=== PATIENT | female | born 1955 | race Caucasian/White ===

== ENCOUNTER 2022-05-17 18:35 | Inpatient (IN) | payer MEDICARE, OTHER ==
[~2022-05-17] VITALS: Ht 170.2 cm; Wt 45.8 kg
--- NOTE | 2022-05-17 19:44 | NUR ---
BIBS. NAUSEA X 3 DAYS. ALSO NOTED BEEN COUGHING X 3 DAYS. PT A/OX4. TOLERATING R/A WELL WITH NO RESP DISTRESS. SAFETY MEASURES IN PLACE.
--- NOTE | 2022-05-17 19:55 | NUR ---
EMT AT PT'S BEDSIDE FOR EKG
--- NOTE | 2022-05-17 19:56 | NUR ---
COVID ANTIGEN SWAB COLLECTED AND SENT TO LAB
--- NOTE | 2022-05-17 20:00 | NUR ---
PROVIDED PT WITH URINE CUP; PT NOT ABLE TO URINATE AT THIS TIME. WILL F/U
--- NOTE | 2022-05-17 20:03 | NUR ---
FINANCIAL REPORTING CONSULTANT AT PT'S BEDSIDE
[2022-05-17] MEDS ORDERED: ONDANSETRON HCL/PF 4 MG/2 ML VIAL ONE (20:21)
[2022-05-17 20:30] LABS: BASOPHILS % (AUTO) 0.1 % (0.0-2.0); EOSINOPHILS % (AUTO) 0.1 % (0.0-6.0); HEMATOCRIT 35 % (33-45); LYMPHOCYTES # (AUTO) 0.4 K/uL (0.8-4.8); LYMPHOCYTES % (AUTO) 5.2 % (20.0-44.0); MEAN CORPUSCULAR HGB CONC 34 g/dl (31.0-36.0); MEAN CORPUSCULAR VOLUME 85 fL (82-100); MONOCYTES # (AUTO) 0.4 K/uL (0.1-1.30); NEUTROPHILS % (AUTO) 89.6 % (43.0-81.0); PLATELET COUNT (AUTO) 208 K/uL (150-450); RED BLOOD CELL COUNT(AUTO) 4.14 MIL/uL (4.0-5.2); WHITE BLOOD COUNT (AUTO) 7.8 K/uL (4.3-11.0)
[2022-05-17] MEDS ORDERED: IV NS 0.9% 1,000 ML IV ONE (20:30)
[2022-05-17] MEDS ORDERED: ONDANSETRON HCL/PF - ER 4 MG/2 ML VIAL IV ONE (20:30)
[2022-05-17 20:33] LABS: CALCIUM, SERUM 8.2 mg/dL (8.5-10.1); CREATININE 0.6 mg/dL (0.6-1.3); POTASSIUM 3.5 mmol/L (3.5-5.1)
[2022-05-17 20:39] LABS: ALBUMIN 2.5 g/dL (3.4-5.0); BILIRUBIN,DIRECT 0.5 mg/dL (0.0-0.2); TOTAL PROTEIN, SERUM 6.6 g/dL (6.4-8.2)
--- NOTE | 2022-05-17 20:42 | NUR ---
COVID POSITIVE. DR. ELISSA SAENZ AWARE.
--- NOTE | 2022-05-17 20:59 | NUR ---
IV LFA #18G S/L PATENT AND INTACT
--- NOTE | 2022-05-17 22:18 | NUR ---
REPORT GIVEN TO EMILY BACA RN FOR NADIA
--- NOTE | 2022-05-17 22:38 | NUR ---
PT TRANSFERRING TO [facility] VIA ACLS PROTOCOL. VSS. ALL BELONGINGS WITH PT.
--- NOTE | 2022-05-17 22:40 | NUR ---
RN ADMITTING NOTE RECEIVED PATIENT FROM ER VIA SANDRA ACCOMPANIED BY 2 ER STAFF, PATIENT AO X 4, IN NO ACUTE DISTRESS, TRANSFERRED TO BED VIA 2 PERSON ASSIST, PATIENT IS AMBULATORY AT BASELINE BUT STATES SHE'S FEELING WEAK TODAY, BREATHING EVEN AND UNLABORED, SATURATION AT 95% ON ROOM AIR, SR ON THE MONITOR, HR IS 100. IV LINE AT LFA 18G PATENT AND FLUSHING WELL, SALINE LOCKED. PATIENT IS CONTINENT AND ABLE TO USE BEDPAN, HOWEVER STATES SHE IS UNABLE TO URINATE AND PROVIDE URINE SAMPLE AT THIS TIME, WILL TRY AGAIN LATER. COMPREHENSIVE ASSESSMENT DONE, NO SKIN ISSUES NOTED. SAFETY MEASURES IN PLACE, BED IS LOCKED AND AT LOWEST POSITION, HOB ELEVATED, CALL LIGHT WITHIN REACH OF PATIENT. WILL CONTINUE TO MONITOR AND CARRY OUT MD ORDERS.
[2022-05-17 23:02] VITALS: BP 127/60
[2022-05-17] MEDS ORDERED: CEFTRIAXONE 1 G VIAL ONE (23:22)
[2022-05-17] MEDS ORDERED: Z GUARD REMEDY 4 OZ OINT TP PRN (23:30)
[2022-05-17] MEDS ORDERED: MAGNESIUM HYDROXIDE 30 ML UDC PO PRN (23:30)
[2022-05-17] MEDS ORDERED: ACETAMINOPHEN 325 MG TABLET PO PRN (23:30)
[2022-05-17] MEDS: ENOXAPARIN SODIUM 40 MG/0.4 ML DISP.SYRIN SQ SCH (23:30)
[2022-05-17] MEDS: CEFTRIAXONE 1 G in IV D5W 50 ML IV SCH ×2 (23:30→23:32)
[2022-05-17] MEDS ORDERED: ONDANSETRON HCL/PF 4 MG/2 ML VIAL IVP PRN (23:30)
[2022-05-17] MEDS: DOXYCYCLINE HYCLATE (100 MG) 100 MG TABLET PO SCH ×2 (23:30→23:32)
--- NOTE | 2022-05-17 23:52 | NUR ---
RN NOTE PATIENT REFUSED MEDICATIONS, PT REFUSED BLOOD DRAW WELL, STATES SHE JUST WANTS TO SLEEP TONIGHT. AWARE
--- NOTE | 2022-05-17 23:59 | NUR ---
2359 Critical Procalcitonin 4.34 relayed to MIKAL Akbar with no order made. Informed him patient refused her antibiotics.
--- NOTE | 2022-05-18 04:14 | NUR ---
RN NOTE PT REFUSED VITAL SIGNS TO BE TAKEN.
--- NOTE | 2022-05-18 06:58 | NUR ---
RN OPEN NOTE PATIENT IN BED AO X 4, IN NO ACUTE DISTRESS, BREATHING EVEN AND UNLABORED, SATURATION AT 97% ON ROOM AIR, SR ON THE MONITOR, HR IS 98. IV LINE AT LFA 18G PATENT AND FLUSHING WELL, SALINE LOCKED. COMPREHENSIVE ASSESSMENT DONE, NO SKIN ISSUES NOTED. SAFETY MEASURES IN PLACE, BED IS LOCKED AND AT LOWEST POSITION, HOB ELEVATED, CALL LIGHT WITHIN REACH OF PATIENT. WILL CONTINUE TO MONITOR AND FALLOW POC
[2022-05-18 07:41] LABS: BASOPHILS % (AUTO) 0.1 % (0.0-2.0); HEMATOCRIT 35 % (33-45); HEMOGLOBIN 11.5 g/dL (11.5-14.8); LYMPHOCYTES # (AUTO) 0.6 K/uL (0.8-4.8); LYMPHOCYTES % (AUTO) 8.9 % (20.0-44.0); MEAN CORPUSCULAR HGB CONC 33 g/dl (31.0-36.0); MEAN CORPUSCULAR VOLUME 86 fL (82-100); MONOCYTES # (AUTO) 0.4 K/uL (0.1-1.30); MONOCYTES % (AUTO) 5.5 % (2.0-12.0); NEUTROPHILS # (AUTO) 5.6 K/uL (1.8-8.9); NEUTROPHILS % (AUTO) 85.5 % (43.0-81.0); PLATELET COUNT (AUTO) 202 K/uL (150-450); RED BLOOD CELL COUNT(AUTO) 4.03 MIL/uL (4.0-5.2); WHITE BLOOD COUNT (AUTO) 6.5 K/uL (4.3-11.0)
--- NOTE | 2022-05-18 07:43 | NUR ---
RAYA OPEN NOTE PATIENT IN BED AO X 4, BREATHING EVEN AND UNLABORED, SATURATION AT 97% ON ROOM AIR, SR ON THE MONITOR, HR IS 94, IV LINE AT LFA 18G PATENT AND INTACT, SALINE LOCKED. DENIES PAIN OR DISCOMFORT. SAFETY MEASURES IN PLACE, BED IS LOCKED AND AT LOWEST POSITION, HOB ELEVATED, CALL LIGHT WITHIN REACH OF PATIENT. NEEDS ATTENDED, WILL CONTINUE TO MONITOR AND FALLOW POC Addendum: 05/18/22 at 0809 by BARTOLO LARES RN DISREGARD THIS NOTE
[2022-05-18 08:00] VITALS: BP 111/62
[2022-05-18 08:01] LABS: CALCIUM, SERUM 8.1 mg/dL (8.5-10.1); CREATININE 0.5 mg/dL (0.6-1.3); MAGNESIUM 2.1 mg/dL (1.8-2.4); PHOSPHORUS 2.3 mg/dL (2.5-4.9); POTASSIUM 3.6 mmol/L (3.5-5.1)
[2022-05-18] MEDS: DOXYCYCLINE HYCLATE (100 MG) 100 MG TABLET PO SCH ×2 (08:04→20:22)
[2022-05-18] MEDS: PANTOPRAZOLE 40 MG TABLET.DR PO SCH (08:04)
--- NOTE | 2022-05-18 08:09 | NUR ---
[facility] AM MEDS BUT DECLINED TO TAKE IT, WILL OFFER LATER AGAIN.
--- NOTE | 2022-05-18 08:56 | NUR ---
offerred Am meds again but declined to take it despite explanation and encouragement.
[2022-05-18] MEDS ORDERED: NEUTRA PHOS 1 POWD.PACKET PO ONE (09:30)
[2022-05-18] MEDS ORDERED: NEUTRA PHOS 1 POWD.PACKET NG ONE (09:30)
[2022-05-18 09:31] LABS: BILIRUBIN,URINE 1+ (NEGATIVE); COLOR,URINE DARK YELLOW (YELLOW); LEUKOCYTE ESTERASE ,URINE NEGATIVE (NEGATIVE); NITRITE, URINE NEGATIVE (NEGATIVE); PROTEIN,URINE 2+ mg/dl (NEGATIVE); UGLUCOSE NEGATIVE (NEGATIVE)
[2022-05-18 09:33] LABS: BACTERIA,URINE Moderate /HPF (None Seen); SQUAMOUS EPITHELIAL CELL,UR Few /HPF (None Seen); WBC,URINE 21-50 /HPF (0-3)
--- NOTE | 2022-05-18 10:02 | NUR ---
resident still declined to take am meds, despite explanation and encouragement,
--- NOTE | 2022-05-18 10:22 | NUR ---
seen by Andrea SAENZ, aware that pt refusing AM meds, spoke to pt. agreed to take, neutraphos prepared but once the MD left, pt refused to take it despite explanation and encouragement. meds returned
[2022-05-18] MEDS ORDERED: DIVA500T4 PO (11:18)
[2022-05-18] MEDS ORDERED: TRAZ-182 PO (11:18)
[2022-05-18] MEDS ORDERED: ALPR0.255 PO (11:18)
[2022-05-18] MEDS ORDERED: ALBU8.5H8 IH (11:18)
[2022-05-18] MEDS ORDERED: GABA-536 PO (11:18)
[2022-05-18] MEDS ORDERED: POLY17PO4 PO (11:18)
[2022-05-18] MEDS ORDERED: ESCI10TA PO (11:18)
[2022-05-18] MEDS ORDERED: ACET-868 PO (11:18)
[2022-05-18] MEDS ORDERED: TAMS-12 PO (11:18)
[2022-05-18] MEDS ORDERED: QUET400T PO (11:18)
[2022-05-18] MEDS ORDERED: DIVA250T PO (11:18)
[2022-05-18] MEDS ORDERED: CHOL100043 PO (11:18)
[2022-05-18] MEDS ORDERED: TRAM50TA2 PO (11:18)
[2022-05-18] MEDS ORDERED: BUDE10.22 IH (11:18)
[2022-05-18] MEDS ORDERED: LATA2.5D15 EACHEYE (11:18)
[2022-05-18] MEDS ORDERED: THIA100T74 PO (11:18)
[2022-05-18 12:00] VITALS: BP 129/64
[2022-05-18 14:00] VITALS: BP 125/71
[2022-05-18 16:00] VITALS: BP 125/71
--- NOTE | 2022-05-18 18:38 | NUR ---
RN CLOSING NOTE PATIENT IN BED AO X 4, BREATHING EVEN AND UNLABORED, SATURATION AT 94% ON ROOM AIR, SR ON THE MONITOR, HR IS 94, IV LINE AT LFA 18G PATENT AND INTACT, SALINE LOCKED. DENIES PAIN OR DISCOMFORT. MINIMIZE WATER INTAKE. SAFETY MEASURES IN PLACE, BED IS LOCKED AND AT LOWEST POSITION, HOB ELEVATED, CALL LIGHT WITHIN REACH OF PATIENT. NEEDS ATTENDED, WILL CONTINUE TO MONITOR AND FOLLOW POC
--- NOTE | 2022-05-18 19:30 | NUR ---
RN Opening Notes Received pt in bed, awake, flat affect. AOx4, able to make needs known. On RA and tolerating well. No SOB noted. No s/sx of respiratory distress noted. Tele monitor detects SR. IV access in LFA #18G. IV is intact, patent, and flushing well. Safety precautions in place: bed in lowest, locked postion, siderails upX2, and brakes on. Table and call light within reach. All needs met at this time.
[2022-05-18 20:00] VITALS: BP 115/56
[2022-05-18] MEDS: CEFTRIAXONE 1 G in IV D5W 50 ML IV SCH (20:22)
[2022-05-18] MEDS: ENOXAPARIN SODIUM 40 MG/0.4 ML DISP.SYRIN SQ SCH (20:23)
--- NOTE | 2022-05-18 20:23 | NUR ---
RN Notes Patient refused 2100 medications. Educated patient on risks and benefits but still refused.
[2022-05-19] VITALS: BP 112/61
--- NOTE | 2022-05-19 03:49 | NUR ---
RN Notes Per LANDSCAPE FOREMAN, tried to bathe patient because she had voided but patient refused.
[2022-05-19 04:00] VITALS: BP 111/58
--- NOTE | 2022-05-19 06:49 | NUR ---
RN Closing Notes Pt in bed, asleep, awakens to verbal stimuli. AOx4, able to make needs known. On RA and tolerating well. No SOB noted. No s/sx of respiratory distress noted. Tele monitor detects SR. IV access in LFA #18G. IV is intact, patent, and flushing well. All orders carried out. All needs met. Pt kept clean and dry. Safety precautions in place: bed in lowest, locked postion, siderails upX2, and brakes on. Table and call light within reach. Will endorse to oncoming shift for NADIA.
--- NOTE | 2022-05-19 07:05 | NUR ---
RN OPENING NOTE PATIENT IN BED ASLEEP, BREATHING EVEN AND UNLABORED, SATURATION AT 94% ON 2L VIA NC. SR ON EXTERNAL CIVIL DEFENSE DIRECTOR, IV LINE AT LFA 18G PATENT AND INTACT, SALINE LOCKED. SAFETY MEASURES IN PLACE, BED IS LOCKED AND AT LOWEST POSITION, HOB ELEVATED, CALL LIGHT WITHIN REACH.
[2022-05-19] MEDS: PANTOPRAZOLE 40 MG TABLET.DR PO SCH (07:58)
[2022-05-19 08:00] VITALS: BP 107/54
[2022-05-19] MEDS: DOXYCYCLINE HYCLATE (100 MG) 100 MG TABLET PO SCH ×2 (08:47→21:00)
--- NOTE | 2022-05-19 10:36 | NUR ---
RN OPENING NOTE PATIENT IN BED ASLEEP, BREATHING EVEN AND UNLABORED, SATURATION AT 94% ON 2L VIA NC. SR ON EXTERNAL CREDIT PRODUCT ANALYST, IV LINE AT LFA 18G PATENT AND INTACT, SALINE LOCKED. SAFETY MEASURES IN PLACE, BED IS LOCKED AND AT LOWEST POSITION, HOB ELEVATED, CALL LIGHT WITHIN REACH.
[2022-05-19] MEDS: ENSURE ENLIVE 237 ML LIQUID (VANILLA) PO SCH ×2 (11:49→17:06)
[2022-05-19 12:00] VITALS: BP 108/58
--- NOTE | 2022-05-19 16:05 | NUR ---
PATIENT REFUSED VITAL SIGNS TO BE CHECKED Addendum: 05/19/22 at 1607 by RILEY BOYCE RN Amended: Links added.
--- NOTE | 2022-05-19 19:00 | NUR ---
RN CLOSING NOTE PATIENT IN BED, AWAKE, BREATHING EVEN AND UNLABORED, O2 2L VIA NC. SR ON EXTERNAL RESEARCH DAIRY FARM SUPERVISOR, IV LINE AT LFA 18G PATENT AND INTACT, SALINE LOCKED. SAFETY MEASURES IN PLACE, BED IS LOCKED AND AT LOWEST POSITION, CALL LIGHT WITHIN REACH.
--- NOTE | 2022-05-19 19:15 | NUR ---
RN OPENING NOTE RECEIVED PATIENT IN BED, AWAKE, AAO X4, O2 VIA NC AT 3L. ON TELE MONITOR SR, IV ACCESS AT LFA 18G INTACT AND PATENT S/L. SAFETY MEASURES IN PLACE: BED LOCKED AND IN LOWEST POSITION, CALL LIGHT WITHIN REACH, SIDE RAILS UP X3.
[2022-05-19] MEDS: ENOXAPARIN SODIUM 40 MG/0.4 ML DISP.SYRIN SQ SCH (21:00)
[2022-05-19] MEDS: CEFTRIAXONE 1 G in IV D5W 50 ML IV SCH (21:00)
--- NOTE | 2022-05-19 21:30 | NUR ---
RN NOTE PATIENT REFUSED ALL MEDICATIONS AND VITAL SIGNS FOR TONIGHT. MD MADE AWARE.
--- NOTE | 2022-05-20 07:30 | NUR ---
RN CLOSING NOTE PATIENT IN BED, ASLEEP BUT EASY TO AROUSE, AAO X4, O2 VIA NC AT 3L. ON TELE MONITOR SR, IV ACCESS AT LFA 18G INTACT AND PATENT S/L. SAFETY MEASURES MAINTAINED: BED LOCKED AND IN LOWEST POSITION, CALL LIGHT WITHIN REACH, SIDE RAILS UP X3.
[2022-05-20 08:00] VITALS: BP 97/34
[2022-05-20 08:04] LABS: CALCIUM, SERUM 7.8 mg/dL (8.5-10.1); CREATININE 0.5 mg/dL (0.6-1.3)
[2022-05-20] MEDS: ENSURE ENLIVE 237 ML LIQUID (VANILLA) PO SCH ×3 (08:04→17:00)
[2022-05-20] MEDS: PANTOPRAZOLE 40 MG TABLET.DR PO SCH ×2 (08:04→08:33)
--- NOTE | 2022-05-20 08:39 | NUR ---
RN NOTE PATIENT REFUSED 0730 DOSE OF PANTOPRAZOLE AND ENSURE LIQUID. NOTIFIED ERICH WYATT NP AND CHARGE NURSE SOON. PROCALCITONIN AT 6.75.
[2022-05-20 08:40] LABS: HEMATOCRIT 34 % (33-45); HEMOGLOBIN 11.5 g/dL (11.5-14.8); LYMPHOCYTES # (AUTO) 0.6 K/uL (0.8-4.8); LYMPHOCYTES % (AUTO) 5.7 % (20.0-44.0); MEAN CORPUSCULAR HGB CONC 34 g/dl (31.0-36.0); MEAN CORPUSCULAR VOLUME 86 fL (82-100); MONOCYTES # (AUTO) 0.4 K/uL (0.1-1.30); MONOCYTES % (AUTO) 3.7 % (2.0-12.0); NEUTROPHILS # (AUTO) 9.2 K/uL (1.8-8.9); NEUTROPHILS % (AUTO) 90.6 % (43.0-81.0); PLATELET COUNT (AUTO) 302 K/uL (150-450); RED BLOOD CELL COUNT(AUTO) 3.97 MIL/uL (4.0-5.2); WHITE BLOOD COUNT (AUTO) 10.2 K/uL (4.3-11.0)
[2022-05-20] MEDS: DOXYCYCLINE HYCLATE (100 MG) 100 MG TABLET PO SCH (08:48)
[2022-05-20] MEDS ORDERED: POTASSIUM CHLORIDE 20 MEQ POWDER PACKET PO ONE ×2 (09:00→12:00)
[2022-05-20] MEDS ORDERED: PANTOPRAZOLE 40 MG TABLET.DR PO ONE (10:00)
--- NOTE | 2022-05-20 10:48 | NUR ---
RN NOTE PATIENT REFUSED TO SPEAK TO DR TALBERT. AWARE.
[2022-05-20 12:00] VITALS: BP 97/55
[2022-05-20] MEDS ORDERED: CEFEPIME 2 GM in IV D5W 100 ML IV SCH (15:00)
[2022-05-20] MEDS: AZITHROMYCIN 250 MG TABLET PO SCH (15:39)
[2022-05-20] MEDS: CEFEPIME 2 GM in IV D5W 100 ML IV SCH (15:39)
[2022-05-20 16:00] VITALS: BP 102/56
[2022-05-20] MEDS ORDERED: IV NS 0.9% 250 ML IV PRN (16:00)
--- NOTE | 2022-05-20 16:31 | NUR ---
RN NOTE PATIENT REFUSED MEDICATIONS. EDUCATED PATIENT ABOUT THE RISKS AND BENEFITS. PATIENT STILL REFUSED. NOTIFIED MD.
--- NOTE | 2022-05-20 17:14 | NUR ---
RN NOTE PATIENT REFUSED TO SIGN CONSENT FOR US GUIDED THORACENTESIS OF THE RIGHT LUNG. PATIENT STATED "I'D RATHER LET IT CLEAR ON ITS OWN". NELSON SAENZ CNA WITNESSED REFUSAL AT BEDSIDE. PATIENT ALLOWED BED BATH AT THIS TIME AND COMPLETE LINEN AND GOWN CHANGE. PATIENT INSISTS ON LAYING FLAT WITHOUT PILLOW. PATIENT REFUSED TO DRINK ENSURE WITH DINNER, PATIENT STATED "DON'T EVEN BOTHER BRINGING IT IN".
--- NOTE | 2022-05-20 19:39 | NUR ---
RN CLOSING NOTE PATIENT IN BED, AWAKE, BREATHING EVEN AND UNLABORED, O2 2L VIA NC. ST ON EXTERNAL BOTTLE LABELER, IV LINE AT LFA 18G PATENT AND INTACT, SALINE LOCKED. ALL SAFETY MEASURES IN PLACE, BED IS LOCKED AND AT LOWEST POSITION, CALL LIGHT WITHIN REACH. WILL ENDORSE CONTINUITY OF CARE TO ENROLLMENT ADVISOR.
--- NOTE | 2022-05-20 19:52 | NUR ---
RN OPENING NOTES: RECEIVED PATIENT IN BED, AWAKE, ALERT/ORIENTED X3-4 AND VERBALLY RESPONSIVE. BREATHING EVEN AND UNLABORED, O2 AT 2L/MIN VIA N/C AND PT TOLERATED WELL. IV ACCES ON LFA#18G INTACT AND PATENT. NO S/S OF INFILTRATIONS. DENIES PAIN OR DISCOMFORT. NO ACUTE DISTRESS. PER PREVIOUS SHIFT, PT REFUSED ALL THE MEDS. VERY UNCOOPERATIVE. ALL SAFETY MEASURES IN PLACE. BED IN LOWEST POSITION AND LOCKED. SIDE RAILS UP X2, PLACE CALL LIGHT WITHIN REACH. WILL CONTINUE TO MONITOR
[2022-05-20 20:00] VITALS: BP 100/62
[2022-05-21] VITALS: BP 105/61
[2022-05-21 04:00] VITALS: BP 105/60
[2022-05-21] MEDS: CEFEPIME 2 GM in IV D5W 100 ML IV SCH ×2 (04:00→15:07)
--- NOTE | 2022-05-21 04:26 | NUR ---
RN NOTES: PT STRONGLY REFUSED IV ATB MAXIPIME. SAID," I DON'T TAKE ANY IV MEDICATIONS". ALSO REFUSED TO SIGN CONSENT FOR THORACENTESIS. WILL CONTINUE TO MONITOR
--- NOTE | 2022-05-21 06:49 | NUR ---
RN CLOSING NOTES: PATIENT IN BED, AWAKE, ALERT/ORIENTED X 4 AND VERBALLY RESPONSIVE. BREATHING EVEN AND UNLABORED, O2 AT 2L/MIN VIA N/C AND PT TOLERATED WELL. O2 SAT 98%. IV ACCESS ON LFA#18G INTACT AND PATENT. NO S/S OF INFILTRATIONS. DENIES PAIN OR DISCOMFORT. NO ACUTE DISTRESS. PT REFUSED IV MEDICATION. VERY UNCOOPERATIVE. ALL SAFETY MEASURES IN PLACE. BED IN LOWEST POSITION AND LOCKED. SIDE RAILS UP X2, PLACE CALL LIGHT WITHIN REACH. WILL ENDORSE TO MORNING SHIFT NURSE.
[2022-05-21] MEDS: ENSURE ENLIVE 237 ML LIQUID (VANILLA) PO SCH ×3 (07:49→16:25)
[2022-05-21 08:00] VITALS: BP 105/60
--- NOTE | 2022-05-21 08:00 | NUR ---
RN OPENING NOTES: RECEIVED PATIENT IN BED, SLEEPING, HAVE A SMALL TOWEL COVERING HER EYES, PATIENT IS VERBALLY RESPONSIVE WHEN AWAKEN, PATIENT STATED "CAN YOU PLEASE LEAVE ME ALONE". ALERT/ORIENTED X3-4 BREATHING EVEN AND UNLABORED, O2 AT 2L/MIN VIA N/C AND PT TOLERATED WELL. IV ACCES ON LFA#18G INTACT AND PATENT. NO S/S OF INFILTRATIONS. DENIES PAIN OR DISCOMFORT AT THIS TIME. NO ACUTE DISTRESS. ALL SAFETY MEASURES IN PLACE. BED IN LOWEST POSITION AND LOCKED. SIDE RAILS UP X2, PLACE CALL LIGHT WITHIN REACH. CONTINUE ON COVID ISOLATION PRECAUTION. PLAN OF CARE CONTINUE.
--- NOTE | 2022-05-21 08:10 | NUR ---
PER RN,MG, PT REFUSING TO SIGN THE CONSENT FOR THORACENTESIS. RN WILL INFORM ORDERING MD.
--- NOTE | 2022-05-21 08:45 | NUR ---
SEEN BY ERICH COIL MACHINE OPERATOR AT THE BEDSIDE, PATIENT REFUSED THORACENTESIS.
[2022-05-21] MEDS ORDERED: POTASSIUM CHLORIDE 20 MEQ POWDER PACKET PO ONE ×2 (09:00→12:00)
--- NOTE | 2022-05-21 09:00 | NUR ---
DR. BE INFORMED ABOUT PATIENT REFUSING THORACENTESIS.
[2022-05-21 09:01] LABS: EOSINOPHILS % (AUTO) 0.3 % (0.0-6.0); HEMATOCRIT 34 % (33-45); HEMOGLOBIN 11.4 g/dL (11.5-14.8); LYMPHOCYTES # (AUTO) 0.8 K/uL (0.8-4.8); LYMPHOCYTES % (AUTO) 10.9 % (20.0-44.0); MEAN CORPUSCULAR HGB CONC 34 g/dl (31.0-36.0); MEAN CORPUSCULAR VOLUME 85 fL (82-100); MONOCYTES # (AUTO) 0.4 K/uL (0.1-1.30); MONOCYTES % (AUTO) 5.1 % (2.0-12.0); NEUTROPHILS # (AUTO) 6.3 K/uL (1.8-8.9); NEUTROPHILS % (AUTO) 83.7 % (43.0-81.0); PLATELET COUNT (AUTO) 358 K/uL (150-450); RED BLOOD CELL COUNT(AUTO) 3.94 MIL/uL (4.0-5.2); WHITE BLOOD COUNT (AUTO) 7.6 K/uL (4.3-11.0)
[2022-05-21 09:13] LABS: CREATININE 0.4 mg/dL (0.6-1.3); POTASSIUM 2.9 mmol/L (3.5-5.1)
[2022-05-21 09:30] LABS: CALCIUM, SERUM 7.8 mg/dL (8.5-10.1)
--- NOTE | 2022-05-21 09:39 | NUR ---
PATIENT KEPT ON REMOVING TELE MONITOR. INFORMED ERICH CYLINDER INSPECTOR WITH ORDER TO DC TELE MONITOR.
--- NOTE | 2022-05-21 11:00 | NUR ---
INFORMED PT THAT PATIENT HAVE A PT EVAL, PER PT THEY DON'T HAVE HER ON THE SCHEDULE, THEY WILL DO IT TOMORROW 05/22/22.
--- NOTE | 2022-05-21 11:59 | NUR ---
PATIENT EATING LUNCH, PATIENT TOOK POTASSIUM
[2022-05-21] MEDS: AZITHROMYCIN 250 MG TABLET PO SCH (14:06)
[2022-05-21 16:00] VITALS: BP 107/62
--- NOTE | 2022-05-21 16:18 | NUR ---
SS Consult: SS consult requested for safe DC planning and to assess mental status as pt. is refusing Tx, refusing psych eval. The pt. is a 66-year-old White female pt. who was admitted to [facility] for COVID-19 and Hyponatremia per EMR. Upon SS consult, the pt. is Alert & Oriented x 4 and makes poor eye contact. The pt. appears well-groomed. Pt. has irritable mood & flat affect. Pt. has clear speech and normal thought process. Pt. was irritable but somewhat cooperative throughout interview. The pt. denies current SI/HI and denies current hallucinations. ALEXIS explored pt.s mental health Hx. Pt. denies any Hx. of mental health. ALEXIS explored pt.s living situation, Pt. states she lives at home [[id number] [facility] [place] [id number]] with a female friend and refused to provide friends information. ALEXIS explored pt.s drug & ETOH use. Pt. denies any drug or alcohol use. Pt. states she receives food stamps and SSI. Plan: Pt. states that upon DC pt. wishes to return home [[id number] [facility]. [address] [facility] [id number]]. Per pt. she will call a friend to pick her up. ALEXIS discussed with Kahlil SAENZ. Pt.s nurse was unavailable.
--- NOTE | 2022-05-21 17:00 | NUR ---
DUE ORAL ANTIBIOTICS TAKEN BY PATIENT.
--- NOTE | 2022-05-21 18:13 | NUR ---
RN CLOSING NOTES: PATIENT IN BED, SLEEPING, HAVE A SMALL TOWEL COVERING HER EYES, PATIENT IS VERBALLY RESPONSIVE WHEN AWAKEN. ALERT/ORIENTED X3-4 BREATHING EVEN AND UNLABORED, O2 AT 2L/MIN VIA N/C AND PT TOLERATED WELL. IV ACCES ON LFA#18G INTACT AND PATENT AND FLUSHES WELL, NO S/S OF INFILTRATIONS. DENIES PAIN OR DISCOMFORT AT THIS TIME. NO ACUTE DISTRESS. ALL SAFETY MEASURES IN PLACE. BED IN LOWEST POSITION AND LOCKED. SIDE RAILS UP X2, PLACE CALL LIGHT WITHIN REACH. CONTINUE ON COVID ISOLATION PRECAUTION. WILL ENDORSE TO NIGHT NURSE FOR NADIA.
--- NOTE | 2022-05-21 19:30 | NUR ---
RN OPENING NOTE RECEIVED PATIENT IN BED; ASLEEP. WITH SMALL TOWEL COVERING HER EYES. A/O X 3-4. VERBALLY RESPONSIVE I WAKE HER AND INTRODUCED MYSELF. PATIENT VERBALIZED "SOMEONE CHECKED ON ME ALREADY. CAN YOU PLEASE LEAVE ME ALONE." ON O2 INHALATION AT 2 LPM VIA NASAL CANNULA; TOLERATING WELL. NOT IN ANY FORM OF RESPIRATORY OR CARDIAC DISTRESS. DENIES ANY PAIN OR DISCOMFORT. WITH IV ACCESS ON LEFT FA 18g; PATENT, INTACT AND SALINE LOCKED. NO S/S OF INFILTRATIONS. ON COVID ISOLATION PRECAUTIONS. SAFETY MEASURES IMPLEMENTED: CALL LIGHT AND TABLE WITHIN REACH, SIDE RAILS UP X 3, BED IN LOWEST LOCKED POSITION. WILL CONTINUE PLAN OF CARE.
[2022-05-21 20:00] VITALS: BP 112/66
[2022-05-22] MEDS: CEFEPIME 2 GM in IV D5W 100 ML IV SCH ×2 (04:00→15:48)
--- NOTE | 2022-05-22 06:40 | NUR ---
RN CLOSING NOTE PATIENT IN BED; AWAKE, A/O X 3-4. VERBALLY RESPONSIVE. STILL ON O2 INHALATION AT 2 LPM VIA NASAL CANNULA; WELL TOLERATED. IN NO ACUTE DISTRESS. NO C/O ANY PAIN OR DISCOMFORT. WITH IV ACCESS ON LEFT FA 18g; PATENT, INTACT AND SALINE LOCKED. ON COVID ISOLATION PRECAUTIONS. SAFETY MEASURES IN PLACE: CALL LIGHT AND TABLE WITHIN REACH, SIDE RAILS UP X 3, BED IN LOWEST LOCKED POSITION. ENDORSED TO MORNING SHIFT FOR NADIA.
[2022-05-22] MEDS: PANTOPRAZOLE 40 MG TABLET.DR PO SCH (07:30)
[2022-05-22] MEDS: ENSURE ENLIVE 237 ML LIQUID (VANILLA) PO SCH ×3 (07:40→16:59)
--- NOTE | 2022-05-22 07:40 | NUR ---
PATIENT REFUSED TO TAKE MEDICATION, PATIENT STATED, " I DONT HAVE ACID IN MY STOMACH".
--- NOTE | 2022-05-22 08:10 | NUR ---
SPOKE TO RN REGARDING CONSENT FOR THORACENTESIS. HE WILL ASK PT FOR HER CONSENT AGAIN. PT REFUSED TO CONSENT FOR PROCEDURE YESTERDAY.
[2022-05-22 09:14] LABS: BASOPHILS % (AUTO) 0.5 % (0.0-2.0); EOSINOPHILS % (AUTO) 0.6 % (0.0-6.0); HEMATOCRIT 34 % (33-45); HEMOGLOBIN 11.3 g/dL (11.5-14.8); LYMPHOCYTES % (AUTO) 16.9 % (20.0-44.0); MEAN CORPUSCULAR HGB CONC 34 g/dl (31.0-36.0); MEAN CORPUSCULAR VOLUME 86 fL (82-100); MONOCYTES # (AUTO) 0.4 K/uL (0.1-1.30); MONOCYTES % (AUTO) 6.6 % (2.0-12.0); NEUTROPHILS # (AUTO) 4.6 K/uL (1.8-8.9); NEUTROPHILS % (AUTO) 75.4 % (43.0-81.0); PLATELET COUNT (AUTO) 412 K/uL (150-450); RED BLOOD CELL COUNT(AUTO) 3.94 MIL/uL (4.0-5.2); WHITE BLOOD COUNT (AUTO) 6.1 K/uL (4.3-11.0)
[2022-05-22 09:25] LABS: CALCIUM, SERUM 7.8 mg/dL (8.5-10.1); CREATININE 0.5 mg/dL (0.6-1.3); POTASSIUM 3.8 mmol/L (3.5-5.1)
--- NOTE | 2022-05-22 09:37 | NUR ---
PATIENT REFUSED THORACENTESIS TODAY, DR BE INFORMED AND AWARE.
[2022-05-22] MEDS: AZITHROMYCIN 250 MG TABLET PO SCH (14:27)
--- NOTE | 2022-05-22 15:17 | NUR ---
INFORMED PATIENT ABOUT IV ANTIBIOTIC AT 16:OO, PATIENT STATED, " YOU GOT THE WRONG INFORMATION AND I DON'T NEED IT." MD AND CHARGE NURSE AWARE.
[2022-05-22 16:00] VITALS: BP 119/69
--- NOTE | 2022-05-22 18:18 | NUR ---
CLOSING NOTE PATIENT IN BED; AWAKE, A/O X 3-4. VERBALLY RESPONSIVE. STILL ON O2 INHALATION AT 2 LPM VIA NASAL CANNULA; WELL TOLERATED. IN NO ACUTE DISTRESS. NO C/O ANY PAIN OR DISCOMFORT. WITH IV ACCESS ON LEFT FA 18g; PATENT, INTACT AND SALINE LOCKED. ON COVID ISOLATION PRECAUTIONS. SAFETY MEASURES IN PLACE: CALL LIGHT AND TABLE WITHIN REACH, SIDE RAILS UP X 3, BED IN LOWEST LOCKED POSITION
--- NOTE | 2022-05-22 19:57 | NUR ---
MS RN OPENING NOTES: RECEIVED PATIENT AWAKE IN BED, BED IN LOW POSITION CALL LIGHTS WITHIN REACH, NO COMPLAIN OF PAIN AND DISCOMFORT AT THIS TIME, ON O2 INHALATION AT 2LPM SATURATING WELL, PATIENT IS A/O X4 ABLE TO MAKE NEEDS KNOWN, AMBULATORY WITH ASSIST, REMIND TO USE THE CALL LIGHTS WHEN NEEDED ASSISTANCE, PATIENT KEPT CLEAN AND DRY ALL NEEDS MET WILL CONTINUE TO MONITOR.
--- NOTE | 2022-05-22 20:48 | NUR ---
RN NOTES: PATIENT REFUSED BLOOD PRESSURE CHECK OFFERED 3X BUT PATIENT REFUSED PATIENT IS A/O X4 HAS HISTORY OF BEING NONE COMPLAINT WITHI MEDICAL MANAGEMENT WILL CONTINUE TO MONITOR
[2022-05-22 22:00] VITALS: BP 119/69
[2022-05-23] MEDS: CEFEPIME 2 GM in IV D5W 100 ML IV SCH (04:00)
--- NOTE | 2022-05-23 04:17 | NUR ---
RN NOTES: PATIENT REFUSED THE 4AM CEFEPIME ANTIBIOTIC EXPLAIN RISK AND BENEFITS PATIENT SLEEP REFUSED, WILL CONTINUE TO MONITOR,
--- NOTE | 2022-05-23 05:52 | NUR ---
RN NOTES: PATIENT REFUSED VITAL SIGN OFFERED 3X EXPLAIN THE IMPORTANCE, RISK AND BENEFITS PATIENT REFUSED, WILL CONTINUE TO MONITOR
--- NOTE | 2022-05-23 06:38 | NUR ---
MS RN CLOSING NOTES: PATIENT SLEEP IN BED COMFORTABLY, AROUSABLE TO VERBAL STIMULI, BED IN LOW POSITION CALL LIGHTS WITHIN REACH, NO COMPLAIN OF PAIN AND DISCOMFORT AT THIS TIME, ON O2 INHALATION AT 2LPM VIA NASAL CANNULA, IV LINE AT LFA#18 SL, PATIENT IS NONE COMPLIANT OF MEDICATION, KEPT CLEAN AND DRY ALL NEEDS MET ENDORSE TO INCOMING SHIFT.
--- NOTE | 2022-05-23 07:10 | NUR ---
RN OPENING NOTE RECEIVED PATIENT IN BED, ASLEEP, SMALL TOWEL OVER FACE, ON O2 AT 2 LPM VIA NC. IV ACCESS ON LEFT FA 18g, PATIENT REFUSED TO LET IT FLUSH. ON COVID ISOLATION PRECAUTIONS. SAFETY MEASURES IMPLEMENTED: CALL LIGHT AND TABLE WITHIN REACH, SIDE RAILS UP X 3, BED IN LOWEST LOCKED POSITION.
[2022-05-23] MEDS: PANTOPRAZOLE 40 MG TABLET.DR PO SCH (07:30)
[2022-05-23] MEDS: ENSURE ENLIVE 237 ML LIQUID (VANILLA) PO SCH ×2 (08:00→11:41)
[2022-05-23 10:00] VITALS: BP 95/57
--- NOTE | 2022-05-23 14:53 | NUR ---
PATIENT DISCHARGED IN STABLE CONDITION, TAKEN OUTSIDE TO THE CAR BY WHEELCHAIR. WILL CONTINUE WITH HOME HEALTH AGENCY. EDUCATION PROVIDED, VERBALIZED UNDERSTANDING.
== END 2022-05-23 14:52 | disposition home health service (06) | DRG 177 ==
LOC: ER 18:50 → TELE1 22:00 → MEDSG1 05-21 09:43
PROVIDERS: ADMIT Nurse Practitioner Family; ATTEND Nurse Practitioner Acute Care
DX: U07.1 COVID-19 (principal); E43 Unspecified severe protein-calorie malnutrition; J12.82 Pneumonia due to coronavirus disease 2019; J15.9 Unspecified bacterial pneumonia; J96.01 Acute respiratory failure with hypoxia; E22.2 Syndrome of inappropriate secretion of antidiuretic hormone; J91.8 Pleural effusion in other conditions classified elsewhere; J98.11 Atelectasis; Z68.1 Body mass index [BMI] 19.9 or less, adult; Z28.310 Unvaccinated for COVID-19; M06.9 Rheumatoid arthritis, unspecified; Z88.5 Allergy status to narcotic agent; Z98.890 Other specified postprocedural states; E88.09 Other disorders of plasma-protein metabolism, not elsewhere classified; J84.10 Pulmonary fibrosis, unspecified; Z91.199 Patient's noncompliance with other medical treatment and regimen due to unspecified reason; E87.6 Hypokalemia; F29 Unspecified psychosis not due to a substance or known physiological condition; Z53.29 Procedure and treatment not carried out because of patient's decision for other reasons
CPT/HCPCS: 36415; 71045-TC; 76770-TC; 80048-TC; 80061-TC; 80076-TC; 81001; 83605-TC; 83615-TC; 83735-TC; 84100-TC; 85025-TC; 86140-TC; 87040-TC; 87081-TC; 87086-TC; 97116-TC; 97530-TC; A4223; C9803; G0378; J0692; J0696; J1650; J2405; J7030; J7050; J7060